=== PATIENT | male | born 1940 | race Caucasian/White ===

== ENCOUNTER 2018-12-31 08:40 | Observation (INO) ==
--- NOTE | 2018-12-31 09:05 | Emergency Department Note ---
START Narrative - START START: Received a call from Dr. Zuñiga get her regarding a patient he is sending him from his office. Patient has history of stage III chronic kidney disease, being sent over due to severe dyspnea on exertion, progressive edema, jugular venous distention, and 6 pound weight gain. I am told that he is not very good with self-care. Had a creatinine of 1.6 in September, 1.7 in October, he is suspicious that his kidney dysfunction may have progressed. Dr. Zuñiga requested admission to the hospitalist team with consultation to him.
[2018-12-31] MEDS ORDERED: Furosemide 40 MG/4 ML VIAL IVP STA (09:30)
--- NOTE | 2018-12-31 09:31 | Emergency Department Note ---
Disposition Clinical Impression: Congestive heart failure Disposition: Admitted As Inpatient Condition: Good [facility]errals: [facility] [[facility] Physician[facility] - Forms: ED Satisfaction Letter Time of Disposition: 11:11 General Adult HPI - General Chief complaint: ED Shortness of Breath/Dyspnea Stated complaint: SOB Time Seen by Provider: 12/31/18 09:02 Source: patient Limitations: no limitations Nursing Notes Reviewed: Yes Vital Signs Reviewed: Yes - History of Present Illness HPI Narrative: Male patient presenting to emergency department after being sent by Dr. Salinas get her for increased dyspnea on exertion. Patient does have a history of lung cancer that he had radiation and resection for as well as chronic kidney disease. Patient is very reserved on what he tells me why he is here. Dr. Frey did give a phone call to the ER prior to his arrival here was requesting admission for increased edema and dyspnea on exertion. I feel that this is a reasonable expectation and discussed this with the patient. He expressed understanding. He denied any fevers. He tells me that he does have shortness of breath and has had shortness of breath for several years. He reports that he does not believe it is out of the ordinary for him. He does not use oxygen at home. He does however state that he is short of breath whenever he walks around. Denies any fevers. Does report a cough that is normal for him with no increased production. Patient states that he does take a antidiuretic but unknown what this is or the dose. [facility] so we are limited on the past medical history and we are attempting to get that at this time. States he has been taking his medications per prescription. Pain Scale: 7 - Related Data Allergies Allergy/AdvReac Type Severity Reaction Status Date / Time Penicillins Allergy Hives Verified 12/31/18 08:50 All systems ED: reviewed and negative except as stated. Review of Systems: As Per HPI Constitutional: Denies: fever Cardiovascular: Denies: chest pain Respiratory: Reports: cough, dyspnea (At baseline. No increased.) Gastrointestinal: Denies: abdominal pain, nausea, vomiting, diarrhea Musculoskeletal: Denies: back pain, neck pain Past Medical History - Past Medical History Attestation: Yes The following information was validated with the patient. Source: patient Medical history: Reports: cancer, COPD, coronary artery disease, hyperlipidemia, hypertension, other Surgical history: Reports: other Psychiatric history: Reports: no psych history - Social History Smoking Status: Former smoker Smokeless Tobacco Status: Yes (every day) Alcohol use: Reports: occasionally Drug use: Reports: none Physical Exam - General Limitations: no limitations General appearance: alert, in no apparent distress - Head Head exam: atraumatic - Eye Eye exam: Present: normal appearance, PERRL, EOMI - ENT ENT exam: normal exam, normal oropharynx, mucous membranes moist - Neck Neck exam: Present: normal inspection, full ROM, trachea midline - Chest Chest inspection: Present: normal inspection, symmetric chest wall rise - Respiratory Respiratory exam: Present: normal lung sounds bilaterally. Absent: respiratory distress, accessory muscle use - Cardiovascular Cardiovascular exam: Present: regular rate, normal rhythm, normal heart sounds - Abdominal Exam Abdominal exam: Present: soft, Non-Tender. Absent: tenderness, distention, guarding, rebound, rigidity, organomegaly, Hernandez's sign, Rovsing's sign, tenderness at McBurney's Point - Extremities Exam Extremities exam: Present: normal inspection, full ROM, pedal edema (Pitting circumferentially to the knees and then in the dependent areas from the knees to the hips.). Absent: tenderness - Back Exam Back exam: Present: normal inspection, full ROM. Absent: tenderness - Neurological Exam Neurological exam: Present: alert, oriented X3 - Psychiatric Psychiatric exam: Present: normal affect, normal mood. Absent: depressed, agitated, anxious Course Course Narrative: Patient with a history of CHF with a baseline ejection fraction at 25% [facility]. Sent from Dr. Velez's office a literature professor or concerns for increased dyspnea on exertion and edema. We did get basic lab workup on the patient and provided him with 40 mg of IV Lasix. Patient is a very poor historian. Quickly time he looked up in my computer. However the patient is a [facility] patient. We did attempt to get the records from them. Patient's lab workup is remarkable for creatinine that is elevated however this appears to be baseline from the [facility] paperwork. Chest x-ray did have a small left-sided pleural effusion. Again he is not more short of breath out of the ordinary for him. He does wear oxygen. Has a pacemaker and EKG does show a paced rhythm with occasional PVCs. We will begin patient to the hospital for further diuresis and evaluation. Again he denies any chest pain and is not tachypneic. Vital Signs Temperature 97.4 F L 12/31/18 08:57 Pulse Rate 62 12/31/18 08:57 Respiratory Rate 15 12/31/18 08:57 Blood Pressure 144/69 12/31/18 08:57 O2 Sat by Pulse Oximetry 97 12/31/18 08:57 Temperature 97.4 F L 12/31/18 08:57 Pulse Rate 82 12/31/18 09:58 Respiratory Rate 17 12/31/18 09:58 Blood Pressure 152/72 12/31/18 09:58 O2 Sat by Pulse Oximetry 99 12/31/18 09:58 Oxygen Delivery Oxygen Delivery Room Air Medical Decision Making - Medical Records Medical records reviewed: Yes I reviewed the patient's medical records. - Lab Data Lab results reviewed: Yes I reviewed the patient's lab results. Result diagrams: 12/31/18 09:45 12/31/18 09:45 Lab Results 12/31/18 12/31/18 12/31/18 Range/Units 09:45 09:45 09:45 WBC 3.9 L (4.3-11.1) K/mcL RBC 4.04 L (4.19-5.50) M/mcL Hgb 11.7 L (12.9-16.9) g/dL Hct 38.1 (37.5-50.1) % MCV 94.3 (83.0-100.0) fL MCH 29.0 (28.0-33.3) pg MCHC 30.7 L (31.6-35.5) g/dL RDW 20.3 H (11.5-14.5) % Plt Count 106 L (140-400) K/mcL MPV 10.1 (9.4-12.4) fL Sodium 141 (136-145) mEq/L Potassium 3.3 L (3.5-5.1) mEq/L Chloride 96 L (98-107) mEq/L Carbon Dioxide 35 H (23-29) mEq/L BUN 26 H (8-23) mg/dL Creatinine 1.66 H (0.70-1.30) mg/dL Est GFR ( Amer) 49 L (> 60) Est GFR (Non-Af Amer) 40 L (> 60) BUN/Creatinine Ratio 16 (6-26) Glucose 100 (70-105) mg/dL Calculated Osmolality 297 (280-300) Calcium 9.7 (8.6-10.3) mg/dL Magnesium 2.3 (1.6-2.6) mg/dL Urine Color Yellow (Yellow) Urine Clarity Clear (Clear) Urine pH 6.5 (5.0-8.0) pH Units Ur Specific [place] 1.015 (1.010-1.025) Urine Protein Trace (Neg-Trace) mg/dL Urine Glucose (UA) Normal (Normal) mg/dL Urine Ketones Negative (Negative) mg/dL Urine Blood Negative (Negative) Urine Nitrite Negative (Negative) Urine Bilirubin Negative (Negative) Urine Urobilinogen 2.0 H (Normal) mg/dL Ur Leukocyte Esterase Negative (Negative) - Radiology Data Radiology results reviewed: Yes I reviewed the patient's radiology results. Chest X-Ray 12/31/18 09:26 IMPRESSION: Left-sided pleural effusion D/ / Johnathon Glass MD / Johnathon Glass MD Interpreting Provider: Johnathon Glass MD - EKG Data EKG #1 EKG attestation: Yes I reviewed and interpreted this EKG. EKG results narrative: Paced rhythm at a rate 84. QRS duration is 26. QT is 544. QTC is 585. Patient does have frequent PVCs as well. These could be his ely [place] beats however. No previous EKG to compare to.
[2018-12-31 09:57] LABS: Bilirubin,Urine Negative (Negative); Blood,Urine Negative (Negative); Clarity,Urine Clear (Clear); Color,Urine Yellow (Yellow); Glucose,Urine (UA) Normal (Normal); Ketones,Urine Negative (Negative); Leukocyte Esterase,Urine Negative (Negative); Nitrite,Urine Negative (Negative); PH,Urine 6.5 pH Units (5.0-8.0); Protein,Urine Trace mg/dL (Neg-Trace); Specific Gravity,Urine 1.015 (1.010-1.025)
[2018-12-31 10:03] LABS: Hematocrit 38.1 % (37.5-50.1); Hemoglobin 11.7 g/dL (12.9-16.9); Mean Corpuscular HGB Conc 30.7 g/dL (31.6-35.5); Mean Corpuscular Volume 94.3 fL (83.0-100.0); Mean Platelet Volume 10.1 fL (9.4-12.4); Platelet Count 106 K/mcL (140-400); Red Blood Count 4.04 M/mcL (4.19-5.50); Red Cell Distribution Width 20.3 % (11.5-14.5); White Blood Count 3.9 K/mcL (4.3-11.1)
[2018-12-31 10:17] LABS: Calcium 9.7 mg/dL (8.6-10.3); Magnesium 2.3 mg/dL (1.6-2.6); Potassium 3.3 mEq/L (3.5-5.1)
--- NOTE | 2018-12-31 10:31 | Emergency Department Note ---
Disposition Clinical Impression: Congestive heart failure Disposition: Admitted As Inpatient Condition: Good [facility]errals: [facility] [Primary Care Provider[facility] - Forms: ED Satisfaction Letter Time of Disposition: 11:11 General Adult HPI - General Chief complaint: ED Shortness of Breath/Dyspnea Stated complaint: SOB Time Seen by Provider: 12/31/18 09:02 Source: patient Limitations: no limitations Nursing Notes Reviewed: Yes Vital Signs Reviewed: Yes - History of Present Illness Pain Scale: 7 - Related Data Allergies Allergy/AdvReac Type Severity Reaction Status Date / Time Penicillins Allergy Hives Verified 12/31/18 08:50 Past Medical History - Past Medical History Medical history: Reports: cancer, COPD, coronary artery disease, hyperlipidemia, hypertension, other Surgical history: Reports: other Psychiatric history: Reports: no psych history - Social History Smoking Status: Former smoker Smokeless Tobacco Status: Yes (every day) Alcohol use: Reports: occasionally Drug use: Reports: none Physical Exam - General Limitations: no limitations General appearance: alert, in no apparent distress Course Vital Signs Temperature 97.4 F L 12/31/18 08:57 Pulse Rate 62 12/31/18 08:57 Respiratory Rate 15 12/31/18 08:57 Blood Pressure 144/69 12/31/18 08:57 O2 Sat by Pulse Oximetry 97 12/31/18 08:57 Temperature 97.4 F L 12/31/18 08:57 Pulse Rate 82 12/31/18 09:58 Respiratory Rate 17 12/31/18 09:58 Blood Pressure 152/72 12/31/18 09:58 O2 Sat by Pulse Oximetry 99 12/31/18 09:58 Oxygen Delivery Oxygen Delivery Room Air Medical Decision Making - Medical Records Medical records reviewed: Yes I reviewed the patient's medical records. - Lab Data Lab results reviewed: Yes I reviewed the patient's lab results. Result diagrams: 12/31/18 09:45 12/31/18 09:45 Lab Results 12/31/18 12/31/18 12/31/18 Range/Units 09:45 09:45 09:45 WBC 3.9 L (4.3-11.1) K/mcL RBC 4.04 L (4.19-5.50) M/mcL Hgb 11.7 L (12.9-16.9) g/dL Hct 38.1 (37.5-50.1) % MCV 94.3 (83.0-100.0) fL MCH 29.0 (28.0-33.3) pg MCHC 30.7 L (31.6-35.5) g/dL RDW 20.3 H (11.5-14.5) % Plt Count 106 L (140-400) K/mcL MPV 10.1 (9.4-12.4) fL Sodium 141 (136-145) mEq/L Potassium 3.3 L (3.5-5.1) mEq/L Chloride 96 L (98-107) mEq/L Carbon Dioxide 35 H (23-29) mEq/L BUN 26 H (8-23) mg/dL Creatinine 1.66 H (0.70-1.30) mg/dL Est GFR ( Amer) 49 L (> 60) Est GFR (Non-Af Amer) 40 L (> 60) BUN/Creatinine Ratio 16 (6-26) Glucose 100 (70-105) mg/dL Calculated Osmolality 297 (280-300) Calcium 9.7 (8.6-10.3) mg/dL Magnesium 2.3 (1.6-2.6) mg/dL Urine Color Yellow (Yellow) Urine Clarity Clear (Clear) Urine pH 6.5 (5.0-8.0) pH Units Ur Specific [place] 1.015 (1.010-1.025) Urine Protein Trace (Neg-Trace) mg/dL Urine Glucose (UA) Normal (Normal) mg/dL Urine Ketones Negative (Negative) mg/dL Urine Blood Negative (Negative) Urine Nitrite Negative (Negative) Urine Bilirubin Negative (Negative) Urine Urobilinogen 2.0 H (Normal) mg/dL Ur Leukocyte Esterase Negative (Negative) - Radiology Data Radiology results reviewed: Yes I reviewed the patient's radiology results. Chest X-Ray 12/31/18 09:26 IMPRESSION: Left-sided pleural effusion D/ / Johnathon Glass MD / Johnathon Glass MD Interpreting Provider: Johnathon Glass MD - EKG Data EKG #1 EKG attestation: Yes I reviewed and interpreted this EKG. EKG results narrative: EKG shows a uncertain rhythm with frequent PVCs in a bigeminy pattern. Ventricular rate 84. Critical Care Time Critical Care Time: No Attestation Statement - Attestation Attestation: I, Stan Poon MD, personally evaluated this patient and discussed their management with the resident physician. I reviewed the resident's note and agree with the documented findings, medical decision making, and plan of care. I reviewed the residents documentation and agree with the residents assessment and plan of care. I have personally had face to face time with the patient. I personally supervised and was present for the flores/critical portions of the following procedures completed by the resident: EKG interpretation. 78-year-old male with history of stage III chronic kidney disease presents to the emergency department after being referred by his wellness coordinator, Dr. Velez, for admission. Patient complains of increased shortness of breath with exertion. Weight gain and increased pedal edema. On examination patient is a well-developed well-nourished elderly male in no acute distress. He is alert and oriented 3. There is no cyanosis or diaphoresis. Breath sounds are decreased but equal bilaterally with a few bibasilar rales. Heart regular. Abdomen soft and nontender. 2+ pitting edema of the lower extremities bilaterally. EKG shows a uncertain rhythm with frequent PVCs in a bigeminy pattern. Ventricular rate 84. Labs reviewed. Chest x-ray showed a pleural effusion. The wellness coordinator software applications designer, Dr. Maya, was consulted and recommended admission with consultation by nephrology. The hospitalist, Dr. Stewart, was consulted and accepted admission of the patient.
--- NOTE | 2018-12-31 12:03 | Internal Med History&Physical ---
Date of Encounter: 12/31/18 Time of Encounter: 12:00 Internal Medicine - H&P: HPI Chief complaint: shortness of breath, send by nephrology Admitted From: Home Plans for Post Hospital Care: Home History of present illness: Mr. Iovry is a 78 year old male with past medical history of lung cancer, COPD, coronary artery disease, ischemic cardiomyopathy with EF of 25% status post AICD, hypertension, chronic thrombocytopenia, systolic CHF, chronic kidney disease stage III, who was recently discharged from [place] after admission for likely CHF exacerbation was seen by probation agent who I asked him to come to ER. Patient has been having shortness of breath gradually progressively worse over the past week or so. He denies any chest pain abdominal pain nausea vomiting or diarrhea. He says is compliant with his medication. Denies any cough fever or chills or sputum production. Denies any difficulty passing urine. Patient has not been following cardiology or pulmonology. He reports that he has lung nodules which apparently there were waiting for it to get big enough so that they can figure out if his lung cancer is back. He received radiation therapy for lung cancer in 2014 however did not receive any chemotherapy or had any surgeries. Patient was seen in the ER and was found to have mild pancytopenia and stable renal function but had significant signs of volume overload. Admission was requested for further diuresis. Patient mentioned he takes part of fluid to prevent dehydration as she was told to do so. Past Med Surg Social Fam HX - Past Medical History Medical history: cancer, COPD, coronary artery disease, hyperlipidemia, hyper tension, other Additional medical history: CKD Psychiatric history: no psych history - Past Surgical History Surgical History: other Additional surgical history: tumor resection - Social History Smoking Status: Former smoker Smokeless Tobacco Status: Yes (every day) Alcohol use: occasionally Drug use: none Internal Medicine - H&P: Meds Allergy/AdvReac Type Severity Reaction Status Date / Time Penicillins Allergy Hives Verified 12/31/18 08:50 All Systems PM: A 10-system review of systems was performed and is negative for pertinent findings except as documented above in the HPI. - Constitutional Vitals: Temp Pulse Resp BP Pulse Ox 97.4 F L 82 17 144/72 99 12/31/18 08:57 12/31/18 09:58 12/31/18 11:57 12/31/18 11:57 12/31/18 09:58 Exam: Constitutional: Vitals as noted. Conversant. No Apparent Distress. frail looking Eyes : conjunctiva clear, no lid lag, PEARLA. ENT : Grossly normal hearing. Moist mucus membranes. JVD present. Respiratory : no accessory muscle use. Diffuse crackles over all lung field Cardiovascular : RRR, +S1, +S2. no MRG. No chest wall tenderness GI/Abdominal : Soft, Non-tender, distended, normal bowel sounds, no peritoneal signs. Fluid thrill present. abdominal wall edema present. Musculoskeletal: no deformity noted. 2+ edema till thigh. no calf tenderness. Neurological: AO X3, CN II-XII grossly intact, grossly normal motor and sensory exam. Skin: no worrisome skin rash Internal Med - H&P Results - Labs CBC & Chem 7: 12/31/18 09:45 12/31/18 09:45 Labs: Short CBC 12/31/18 Range/Units 09:45 WBC 3.9 L (4.3-11.1) K/mcL Hgb 11.7 L (12.9-16.9) g/dL Hct 38.1 (37.5-50.1) % Plt Count 106 L (140-400) K/mcL BMP 12/31/18 09:45 Sodium 141 Potassium 3.3 L Chloride 96 L Carbon Dioxide 35 H BUN 26 H Creatinine 1.66 H Glucose 100 Calcium 9.7 Urine 12/31/18 Range/Units 09:45 Urine Color Yellow (Yellow) Urine Clarity Clear (Clear) Urine pH 6.5 (5.0-8.0) pH Units Ur Specific [place] 1.015 (1.010-1.025) Urine Protein Trace (Neg-Trace) mg/dL Urine Glucose (UA) Normal (Normal) mg/dL - Impressions ITS Impressions Chest X-Ray 12/31/18 09:26 IMPRESSION: Left-sided pleural effusion D/ / Johnathon Glass MD / Johnathon Glass MD Interpreting Provider: Johnathon Glass MD - Assessment and Plan (1) Congestive heart failure Current Visit: Yes Status: Acute Assessment and plan: Patient with signs of volume overload likely secondary to CHF exacerbation with systolic ejection fraction of 25% per papers reviewed from [place] with recent discharge in November. Likely 3rd admission in past 4 months Possibly related to his worsening cardiac disease and possible increase fluid intake as he is not restricting himself. Showed frequent PVCs and AICD with occasional pacing. Patient without chest pain. we will continue patient on IV diuresis with Lasix 40 along with albumin given his CKD, strict in and out monitoring, daily weights Patient on Bumex at home. We will resume depending on his urine output with Lasix today. Continue patient's home spironolactone. Patient also with significant ascites and shortness of breath also possibly related to that. We will get IR guided paracentesis. We will get diagnostic and therapeutic given history of lung cancer and sent for cytology. Replete potassium and monitor BMP later today Qualifiers: Heart failure type: systolic Heart failure chronicity: acute on chronic Qualified Code(s): I50.23 - Acute on chronic systolic (congestive) heart failure (2) COPD (chronic obstructive pulmonary disease) Current Visit: Yes Status: Acute Assessment and plan: Not a COPD exacerbation Continue home Symbicort and when necessary bronchodilators Qualifiers: COPD type: unspecified COPD Qualified Code(s): J44.9 - Chronic obstructive pulmonary disease, unspecified (3) Ischemic cardiomyopathy Current Visit: Yes Status: Acute Assessment and plan: Patient with reported EF of 25% with ischemic cardiomyopathy He does not want any resuscitative measures. We will consult palliative for further goals of care discussion and possible hospice discussion (4) HTN (hypertension) Current Visit: Yes Status: Acute Assessment and plan: Resume home medication including spironolactone, hold home losartan, Does not appear to be on beta raul. Will likely discharge on beta raul once good diuresis achieved. Qualifiers: Hypertension type: essential hypertension Qualified Code(s): I10 - Essential (primary) hypertension (5) Pancytopenia Current Visit: Yes Status: Acute Assessment and plan: Possibly related to volume overload. However has chronic thrombocytopenia Obtain vitamin B12 and folate levels and iron panel (6) Ascites Current Visit: Yes Status: Acute Assessment and plan: Likely exudative. We will obtain diagnostic and therapeuti IR guided paracentesis Obtain viral hepatitis panel Qualifiers: Ascites type: other type Qualified Code(s): R18.8 - Other ascites (7) Goals of care, counseling/discussion Current Visit: Yes Status: Acute Assessment and plan: Patient does not want any resuscitative measures. Agrees to speak with palliative team for possible hospice evaluation. - Time Spent With Patient Total time spent is greater than 50% in coordination of care (as documented) at patient's floor/unit and/or counseling patient:
[2018-12-31] MEDS ORDERED: Albumin 25% 25gram/100mL 25 GM/100 ML IV.SOLN IVPB ONE (12:33)
[2018-12-31] MEDS ORDERED: Ipratropium/Albuterol Neb 3 ML IH PRN (12:42)
--- NOTE | 2018-12-31 15:02 | Procedure Note ---
Date of procedure: 12/31/18 Pre-op diagnosis: ascitis Post-op diagnosis: same Procedure: INDICATION: Ascitis PROCEDURE MECHANICAL INTEGRITY ENGINEER: Hudson Perez ATTENDING PHYSICIAN: Pete Beckwith In Attendance Y Ultrasound used to virgen location: Y 4843mL total fluid removed CONSENT: Consent was obtained from patient prior to the procedure. Indications, risks, and benefits were explained at length. PROCEDURE SUMMARY: A time-out was performed. My hands were washed immediately prior to the pr ocedure. I wore a surgical cap, mask with protective eyewear, and sterile gloves throughout the procedure. The area was cleansed and draped in usual sterile fashion using chlorhexidine scrub. Anesthesia was achieved with 1% lidocaine. The left side of the abdomen was prepped and draped in a sterile fashion. 1% lidocaine was used to numb the skin, soft tissue and peritoneum. The paracentesis catheter was inserted and advanced with negative pressure until yellow/orange colored fluid was aspirated. Approximately 60 mL of ascitic fluid was collected and sent for laboratory analysis. The catheter was then connected to the vaccutainer and 4783 mL of additional ascitic fluid were drained. The catheter was removed and no leaking was noted. Dermabond was placed over the puncture wound. The patient tolerated the procedure well without any immediate complications. Estimated blood loss was 1mL. Anesthesia: local Surgeon: Hudson Perez Was there an purchasing administrative assistant present: No Estimated blood loss (cc): 1 Specimen: 60ml Condition: stable Disposition: floor
--- NOTE | 2018-12-31 15:16 | Event Note ---
Date of Encounter: 12/31/18 Time of Encounter: 15:18 Palliative Care consulted today to assist with goals of care/possible transition to hospice. Pt is currently in IR for procedure. Palliative will follow up in the morning to assist in establishing prognostic awareness, goals and preferences in the setting of his current clinical condition.
[2018-12-31] MEDS: Furosemide 40 MG/4 ML VIAL IVP SCH ×2 (15:34→17:12)
--- NOTE | 2018-12-31 15:41 | Nephrology Consult Note ---
<ShaggynorisAmparoTati Kiran - Last Filed: 12/31/18 21:26> Date of Encounter: 12/31/18 Time of Encounter: 15:39 Assessment and Plan (1) CKD (chronic kidney disease) stage 3, GFR 30-59 ml/min Status: Acute Appears baseline is CKD III, stable. GFR 40 today. Continue current diuretic regimen. Daily BMP to trend GFR with IV diuretics. Avoid other nephrotoxins and renal dose all medications. Strict I/O Daily weights. (2) Ascites Status: Acute Approximately 4 liters removed with paracentesis by IR. Qualifiers: Ascites type: other type Qualified Code(s): R18.8 - Other ascites (3) Congestive heart failure Status: Acute 1.5 Liter fluid restriction. Per primary. Qualifiers: Heart failure type: systolic Heart failure chronicity: acute on chronic Qualified Code(s): I50.23 - Acute on chronic systolic (congestive) heart failure History of Present Illness - Reason for Consult Consult date: 12/31/18 Chronic Kidney Disease Requesting physician: Mildred Mckeon - Chief Complaint dyspnea - History of Present Illness Mr. Ivory is an 78 year old male who was seen by Dr. Velez in the office this am. PMH: COPD, coronary artery disease, hyperlipidemia, hypertension, and CKD III. He describe extreme dyspnea and edema to Dr. Velez this am, so he suggested he to to ED for IV diuretics. There was also concern because patient was not sure what "water pill" he was on, and since he is seen at the [place] they were not readily available to Dr. Velez. [facility] were consulted to manage diuretics. Pt has 40 IV lasix ordered BID. Will monitor kidney function and titrate accordingly. Denies chest pain, admits to feeling short of breath. Denies nausea, vomiting, diarrhea. He is a former smoker, now uses smokeless tobacco daily. Denies etoh or illicit drug use. Past Med Surg Social Fam HX - Past Medical History Medical history: cancer, COPD, coronary artery disease, hyperlipidemia, hypertension, other Additional medical history: CKD Psychiatric history: no psych history - Past Surgical History Surgical History: other Additional surgical history: tumor resection - Social History Smoking Status: Former smoker Smokeless Tobacco Status: Yes (every day) Alcohol use: occasionally Drug use: none Medications and Allergies Allopurinol [Zyloprim 100 MG] 50 mg PO DAILY 12/31/18 [History] Budesonide/Formoterol 160/4.5 [Symbicort 160/4.5] 2 puff IH BIDR 12/31/18 [History] Carvedilol [Coreg] 6.25 mg PO BIDWM 12/31/18 [History] Ipratropium/Albuterol Sulfate [Combivent Respimat 20-100 Mcg] 1 puff IH QID PRN 12/31/18 [History] Losartan [Cozaar] 12.5 mg PO QPM 12/31/18 [History] Aspirin 81 mg PO DAILY #0 01/01/19 [Rx] Atorvastatin Calcium [Lipitor] 80 mg PO HS #0 01/01/19 [Rx] Furosemide [Lasix] 40 mg PO BID 30 Days #60 tablet 01/01/19 [Rx] Spironolactone [Aldactone] 25 mg PO BID 30 Days #30 tab 01/01/19 [Rx] Allergy/AdvReac Type Severity Reaction Status Date / Time Penicillins Allergy Hives Verified 12/31/18 08:50 Review of Systems All Systems review (narrative): The remainder of the systems are negative. Constitutional: fatigue, no chills, no fever(s) Cardiovascular: dyspnea, dyspnea on exertion, edema, no chest pain Respiratory: cough, dyspnea, no hemoptysis, no wheezing Gastrointestinal: no change in bowel habits, no diarrhea, no nausea, no vomiting Genitourinary Male: no hematuria Exam - Vital Signs Vital signs: Initial Vital Signs Temp Pulse Resp BP Pulse Ox 97.4 F L 62 15 144/69 97 12/31/18 08:57 12/31/18 08:57 12/31/18 08:57 12/31/18 08:57 12/31/18 08:57 Vital Signs - Last 8 Hours Temp Pulse Resp BP Pulse Ox 12/31/18 15:32 97.6 F 69 16 120/64 96 12/31/18 12:54 97.7 F 76 16 134/92 94 12/31/18 11:57 17 144/72 12/31/18 09:58 82 17 152/72 99 12/31/18 08:57 97.4 F L 62 15 144/69 97 Intake and Output 12/30/18 12/31/18 12/31/18 23:59 07:59 15:59 Intake Total 480 / 480 Output Total 125 / 125 Balance 355 / 355 Intake: Oral 480 / 480 Output: Urine 125 / 125 Other: Meal Lunch Percent of Meal Consumed 100% Weight 87.997 kg Patient Weight 12/31/18 23:59 Weight 87.997 kg - General Appearance General appearance: chronically ill EENT: ATNC, hearing intact, vision intact Neck: JVD, supple Respiratory: clear Cardiology: edema (+2 pitting edema noted to bilat lower extremities.), normal S1, normal S2 Gastrointestinal: normoactive bowel sounds, no tenderness, no guarding, distende d Integumentary: no rash, warm and dry Neurologic: alert and oriented x3 Musculoskeletal: no deformities, no erythema Psychiatric: mood/affect appropriate, cooperative Results - Lab Results 12/31/18 09:45 12/31/18 18:20 Most recent lab results 12/31/18 09:45 Calcium 9.7 Magnesium 2.3 Consult Discharge Plan - Plan Instructions: Spironolactone (By mouth), Furosemide (By mouth), Heart Failure (DC) Referrals: [facility] [Other] (appointment requested online within 4-6 weeks; office will follow up with patient to schedule appointment) [facility] - (tried twice to reach the office to schedule appointment but phone continually rang with no answer. Please call and make appointment in 5-7 days) Prescriptions: Spironolactone [Aldactone] 25 mg PO BID 30 Days #30 tab Prescription Printed Furosemide [Lasix] 40 mg PO BID 30 Days #60 tablet Prescription Printed <Grant Gamez - Last Filed: 01/10/19 22:25> Date of Encounter: 12/31/18 Assessment and Plan (1) CKD (chronic kidney disease) stage 3, GFR 30-59 ml/min Status: Acute (2) Ascites Status: Acute Qualifiers: Ascites type: other type Qualified Code(s): R18.8 - Other ascites (3) Congestive heart failure Status: Acute Qualifiers: Heart failure type: systolic Heart failure chronicity: acute on chronic Qualified Code(s): I50.23 - Acute on chronic systolic (congestive) heart failure Exam - Vital Signs Vital signs: Initial Vital Signs Temp Pulse Resp BP Pulse Ox 97.4 F L 62 15 144/69 97 12/31/18 08:57 12/31/18 08:57 12/31/18 08:57 12/31/18 08:57 12/31/18 08:57 Results - Lab Results 01/01/19 00:43 01/01/19 00:43 - Attending Attestation I examined this patient and my medical decision-making was reviewed with the Resident Physician/AQUATIC FACILITY MANAGER. I agree with the documented findings, disposition and treatment plan as described except to the extent set forth below. In brief; 78 y o male with PMH of COPD, CAD, HTN and stage [address] Velez admitted with SOB and LE edema. s/p paracentesis with 4 liters removed. Renal consulted for diuretic management, currently on lasix iv 40mg bid. On exam; chronic ill appearing with lungs clear, Heart S1S2, Ext with +1 LE edema bilat and Neuro AAOx3. SCr noted stable at baseline. Continue current diuretic regimen. Fluid restriction advised.
[2018-12-31 16:07] LABS: INR 1.5; Prothrombin Time 17.4 Seconds (9.4-12.1)
[2018-12-31 19:03] LABS: Potassium 3.3 mEq/L (3.5-5.1)
[2018-12-31 22:09] LABS: Troponin I 0.04 ng/mL (< 0.04)
[2018-12-31 22:39] LABS: RBC,Peritoneal Fluid 0.002 M/mcL
[2018-12-31 22:45] LABS: Total Protein,Peritoneal Fluid 3.1 g/dL
[2018-12-31 22:52] LABS: Appearance of Peritoneal Fl HAZY (Clear)
[2018-12-31 23:11] LABS: Basophils,Peritoneal Fluid 0 %; Eosinophils,Peritoneal Fluid 0 %
[2019-01-01 01:30] LABS: Basophils % 0.7 %; Eosinophils # 0.1 K/mcL (0.0-0.6); Eosinophils % 2.9 %; Hematocrit 33.8 % (37.5-50.1); Hemoglobin 10.3 g/dL (12.9-16.9); Lymphocytes # 0.5 K/mcL (0.6-4.6); Lymphocytes % 10.3 %; Mean Corpuscular HGB Conc 30.5 g/dL (31.6-35.5); Mean Corpuscular Hemoglobin 29.3 pg (28.0-33.3); Mean Platelet Volume 11.5 fL (9.4-12.4); Monocytes # 0.4 K/mcL (0.0-1.3); Monocytes % 9.2 %; Neutrophils # 3.4 K/mcL (1.6-8.9); Platelet Count 103 K/mcL (140-400); Red Blood Count 3.52 M/mcL (4.19-5.50); Red Cell Distribution Width 20.2 % (11.5-14.5); Segmented Neutrophils % 76.9 %; White Blood Count 4.5 K/mcL (4.3-11.1)
[2019-01-01 01:36] LABS: INR 1.6; Prothrombin Time 17.8 Seconds (9.4-12.1)
[2019-01-01 01:54] LABS: Magnesium 2.1 mg/dL (1.6-2.6); Phosphorous 3.1 mg/dL (2.7-4.5); Potassium 3.5 mEq/L (3.5-5.1)
[2019-01-01 01:55] LABS: % Iron Saturation 12 % (20-55); Iron 39 mcg/dL (65-175); Transferrin 227 mg/dL (203-362)
[2019-01-01 02:08] LABS: Ferritin 57 ng/mL (20-250)
[2019-01-01 02:14] LABS: Folate 8.8 ng/mL (3.0-16.0)
[2019-01-01 03:39] LABS: Hepatitis B Surface Antigen Nonreactive (Nonreactive)
[2019-01-01 04:09] LABS: Hepatitis B Core IgM Nonreactive (Nonreactive)
[2019-01-01 04:10] LABS: Hepatitis C Virus Antibody Nonreactive (Nonreactive)
[2019-01-01 04:11] LABS: Hepatitis A Antibody IgM Nonreactive (Nonreactive)
--- NOTE | 2019-01-01 06:01 | Electrocardiograph Report ---
[facility] Test Date: 2018-12-31 Pat Name: Nicolás Ivory Department: 104 Room: 2NE22 Gender: M Director Of Personnel: Sarah : 1940 Requested By: Tyrone Ureña Order Number: [id number] Reading MD: Zachariah Oreilly Measurements Intervals [place] Rate: 84 P: ME: 0 QRS: 106 QRSD: 226 T: 268 QT: 544 QTc: 585 Interpretive Statements PACED RHYTHM Electronically Signed On 01-01-2019 6:00:11 EDT by Zachariah Oreilly
[2019-01-01] MEDS ORDERED: Spironolactone 25 MG TABLET PO SCH (09:00)
[2019-01-01] MEDS ORDERED: Aspirin Enteric Coated 81 MG Tablet PO SCH (09:00)
[2019-01-01] MEDS: Furosemide 40 MG/4 ML VIAL IVP SCH (09:01)
--- NOTE | 2019-01-01 09:05 | Internal Med Progress Note ---
Hospitalist Progress Note - Encounter Date of Encounter: 01/01/19 - Exam Vitals: Temp Pulse Resp BP Pulse Ox 98 F 73 16 136/69 93 01/01/19 07:46 01/01/19 07:46 01/01/19 07:46 01/01/19 07:46 01/01/19 07:46 - Assessment and Plan (1) Congestive heart failure Current Visit: Yes Status: Acute (2) COPD (chronic obstructive pulmonary disease) Current Visit: Yes Status: Acute (3) Ischemic cardiomyopathy Current Visit: Yes Status: Acute (4) HTN (hypertension) Current Visit: Yes Status: Acute (5) Pancytopenia Current Visit: Yes Status: Acute (6) Ascites Current Visit: Yes Status: Acute (7) Goals of care, counseling/discussion Current Visit: Yes Status: Acute - Time Spent with Patient Total time spent is greater than 50% in coordination of care (as documented) at patient's floor/unit and/or counseling patient: Internal Medicine: Result - Labs CBC & Chem 7: 01/01/19 00:43 01/01/19 00:43 Labs: Short CBC 12/31/18 01/01/19 Range/Units 09:45 00:43 WBC 3.9 L 4.5 (4.3-11.1) K/mcL Hgb 11.7 L 10.3 L (12.9-16.9) g/dL Hct 38.1 33.8 L (37.5-50.1) % Plt Count 106 L 103 L (140-400) K/mcL Neutrophils # 3.4 (1.6-8.9) K/mcL BMP 12/31/18 12/31/18 01/01/19 09:45 18:20 00:43 Sodium 141 140 140 Potassium 3.3 L 3.3 L 3.5 Chloride 96 L 98 99 Carbon Dioxide 35 H 34 H 29 BUN 26 H 28 H 27 H Creatinine 1.66 H 1.72 H 1.73 H Glucose 100 113 H 112 H Calcium 9.7 9.0 9.0 Cardiac Enzymes 12/31/18 01/01/19 01/01/19 Range/Units 18:20 00:43 06:20 Troponin I 0.04 H* 0.05 H* 0.05 H* (< 0.04) ng/mL Liver Function 12/31/18 Range/Units 13:28 Albumin 3.9 (3.5-5.7) g/dL Urine 12/31/18 Range/Units 09:45 Urine Color Yellow (Yellow) Urine Clarity Clear (Clear) Urine pH 6.5 (5.0-8.0) pH Units Ur Specific [place] 1.015 (1.010-1.025) Urine Protein Trace (Neg-Trace) mg/dL Urine Glucose (UA) Normal (Normal) mg/dL - ABG Interpretation ABG results: PT/INR, D-dimer PT 17.8 Seconds (9.4-12.1) H 01/01/19 00:43 - Impressions Impressions Chest X-Ray 12/31/18 09:26 IMPRESSION: Left-sided pleural effusion D/ / Johnathon Glass MD / Johnathon Glass MD Interpreting Provider: Johnathon Glass MD Paracentesis Ultrasound 12/31/18 15:48 IMPRESSION: Successful ultrasound guided paracentesis. D/ / Pete Beckwith MD / Pete Beckwith MD Interpreting Provider: Pete Beckwith MD Consult Discharge Plan - Plan [facility] Provider[facility] - (1) Congestive heart failure Qualifiers: Heart failure type: systolic Heart failure chronicity: acute on chronic Qualified Code(s): I50.23 - Acute on chronic systolic (congestive) heart failure (2) COPD (chronic obstructive pulmonary disease) Qualifiers: COPD type: unspecified COPD Qualified Code(s): J44.9 - Chronic obstructive pulmonary disease, unspecified (4) HTN (hypertension) Qualifiers: Hypertension type: essential hypertension Qualified Code(s): I10 - Essential (primary) hypertension (6) Ascites Qualifiers: Ascites type: other type Qualified Code(s): R18.8 - Other ascites
--- NOTE | 2019-01-01 15:10 | Palliative - Consult Note ---
Date of Encounter: 01/01/19 Time of Encounter: 15:09 - Assessment and Plan (1) Palliative care by specialist Current Visit: Yes Status: Acute Assessment and plan: Pt currently has capacity to make complex medical decisions. (2) Goals of care, counseling/discussion Current Visit: Yes Status: Acute Assessment and plan: - We discussed his clinical condition, prognosis, and treatment options in the context of his values, preferences and goals. Although pt is poor historian when discussing his medications, he does demonstrate a clear understanding of his current clinical condition. - Discussed goals -- disease focused vs comfort focused care. Pt voices that he is not interested in hospice care at this time. - With permission, Palliative Care offered information pertaining to hospice / symptom management. Pt voiced understanding of hospice care and the services they provide. He expressed, " I don't think I am there yet." At this time, he continues to be okay with returning to the hospital if his condition worsens. Palliative Care discussed with patient that we are available to further discuss goals of care in the future if he desires. - Reviewed symptom management--pt reports his shortness of breath is much improved after being drained. He denies pain, constipation or any additional symptoms at this time. He reports that he lives alone and he remains highly functional at home. He does not require any assistance ambulating and still drives on his own and does all of his housework. He denies any further needs at this time. - Symptoms are stable currently and goals are clear. We will sign off for now. Please reconsult if further palliative issues arise. (3) Congestive heart failure Current Visit: Yes Status: Acute Assessment and plan: EF 25%, AICD. Continued diuresis per primary team. Qualifiers: Heart failure type: systolic Heart failure chronicity: acute on chronic Qualified Code(s): I50.23 - Acute on chronic systolic (congestive) heart failure (4) CKD (chronic kidney disease) stage 3, GFR 30-59 ml/min Current Visit: Yes Status: Acute Assessment and plan: Neph following. Per Nephrology notes- Appears baseline is CKD III, stable. (5) Ascites Current Visit: Yes Status: Acute Assessment and plan: Paracentesis by IR yesterday, 4 Liters removed. Qualifiers: Ascites type: other type Qualified Code(s): R18.8 - Other ascites Palliative-CN HPI - Data of Consult Requesting Physician: Jane Stewart MD Primary Care Provider: PCP [place] - Consult Narrative Palliative Care/Comfort Measures: Palliative care Reason for consult: Goals of Care History of present illness: Mr. Ivory is a 78 year old male with hx of lung cancer, COPD, CKD III, CAD and cardiomyopathy EF 25% s/p AICD. [facility] He was at his f/u appt with his funeral limousine driver and it was decided to send him to ED as he had been having progressively worsening shortness of breath leading up to his appointment. He was admitted for further diuresis. Palliative Care was consulted to explore goals of care with patient. Pt currently DNRCC-Arrest/DNI. - We discussed his clinical condition, prognosis, and treatment options in the context of his values, preferences and goals. Although pt is poor historian when discussing his medications, he does demonstrate a clear understanding of his current clinical condition. - Discussed goals -- disease focused vs comfort focused care. Pt voices that he is not interested in hospice care at this time. - With permission, Palliative Care offered information pertaining to hospice / s ymptom management. Pt voiced understanding of hospice care and the services they provide. He expressed, " I don't think I am there yet." At this time, he continues to be okay with returning to the hospital if his condition worsens. Palliative Care discussed with patient that we are available to further discuss goals of care in the future if he desires. - Reviewed symptom management--pt reports his shortness of breath is much improved after being drained. He denies pain, constipation or any additional symptoms at this time. He reports that he lives alone and he remains highly functional at home. He does not require any assistance ambulating and still drives on his own and does all of his housework. He denies any further needs at this time. CC: Jane Stewart MD - Time Spent with Patient Time: Total time spent is greater than 50% in coordination of care (as documented) at patient's floor/unit and/or counseling patient: 80 minutes Past Med Surg Social Fam HX - Past Medical History Medical history: cancer, COPD, coronary artery disease, hyperlipidemia, hype rtension, other Additional medical history: CKD Psychiatric history: no psych history - Past Surgical History Surgical History: other Additional surgical history: tumor resection - Social History Smoking Status: Former smoker Smokeless Tobacco Status: Yes (every day) Alcohol use: occasionally Drug use: none Medications and Allergies Allopurinol [Zyloprim 100 MG] 50 mg PO DAILY 12/31/18 [History] Aspirin 325 mg PO DAILY 12/31/18 [History] Atorvastatin Calcium [Lipitor] 40 mg PO HS 12/31/18 [History] Budesonide/Formoterol 160/4.5 [Symbicort 160/4.5] 2 puff IH BIDR 12/31/18 [History] Bumetanide [Bumex] 1 mg PO BID 12/31/18 [History] Carvedilol [Coreg] 6.25 mg PO BIDWM 12/31/18 [History] Ipratropium/Albuterol Sulfate [Combivent Respimat Inhal [place]] 1 puff IH QID PRN 12/31/18 [History] Losartan [Cozaar] 12.5 mg PO QPM 12/31/18 [History] Spironolactone [Aldactone] 12.5 mg PO BID 12/31/18 [History] Allergy/AdvReac Type Severity Reaction Status Date / Time Penicillins Allergy Hives Verified 12/31/18 08:50 - Constitutional Constitutional ROS PAL: as per HPI, fatigue - Cardiovascular Cardiovascular ROS: as per HPI, dyspnea on exertion, edema - Respiratory Respiratory: as per HPI, dyspnea on exertion - Gastrointestinal Gastrointestinal: no abdominal pain, no constipation - Genitourinary Genitourinary ROS male: no difficulty urinating - Musculoskeletal Musculoskeletal ROS IM: as per HPI - Neurological Neurological ROS: as per HPI, no frequent falls, no lack of coordination, no weakness - Psychiatric Psychiatric general PM: as per HPI, no anxiety Palliative Care-Exam - Constitutional Vitals: Temp Pulse Resp BP Pulse Ox 98 F 73 16 136/69 93 01/01/19 07:46 01/01/19 07:46 01/01/19 07:46 01/01/19 07:46 01/01/19 07:46 Exam: CONSTITUTIONAL/GENERAL: Awake, interactive, NAD, lying in bed. Ear/Nose/Mouth/Throat (EMNT): Patent, atraumatic. CARDIOVASCULAR: Pulse regular; pacemaker/AICD present. Generalized edema. RESPIRATORY: Unlabored. Symmetric, normal effort. Room air. GASTROINTESTINAL: Soft, non-distended. Active bowel sounds present. MUSCULOSKELETAL: No deformities; No joint swelling or erythema. INTEGUMENTARY: No rashes or lesions noted. NEUROLOGIC: No gross motor or sensory deficits appreciated. PSYCHIATRY: Alert, attentive. Behavior appropriate to situation. Internal Medicine - CN: Reslt - Labs CBC & Chem 7: 01/01/19 00:43 01/01/19 00:43 Labs: Short CBC 01/01/19 Range/Units 00:43 WBC 4.5 (4.3-11.1) K/mcL Hgb 10.3 L (12.9-16.9) g/dL Hct 33.8 L (37.5-50.1) % Plt Count 103 L (140-400) K/mcL Neutrophils # 3.4 (1.6-8.9) K/mcL BMP 12/31/18 01/01/19 18:20 00:43 Sodium 140 140 Potassium 3.3 L 3.5 Chloride 98 99 Carbon Dioxide 34 H 29 BUN 28 H 27 H Creatinine 1.72 H 1.73 H Glucose 113 H 112 H Calcium 9.0 9.0 Cardiac Enzymes 12/31/18 01/01/19 01/01/19 Range/Units 18:20 00:43 06:20 Troponin I 0.04 H* 0.05 H* 0.05 H* (< 0.04) ng/mL - ABG Interpretation ABG results: PT/INR, D-dimer PT 17.8 Seconds (9.4-12.1) H 01/01/19 00:43 - Impressions Impressions Paracentesis Ultrasound 12/31/18 15:48 IMPRESSION: Successful ultrasound guided paracentesis. D/ / Pete Beckwith MD / Pete Beckwith MD Interpreting Provider: Pete Beckwith MD Consult Discharge Plan - Plan [facility]errals: [facility] Provider[facility] - (tried twice to reach the office to schedule appointment but phone continually rang with no answer) Palliative Quality Palliative Quality: Screen for Code Status: Yes, Screen for Goals of Care: Yes, Screen for Pain: Yes, If Pain Regimen Started, Initiate Bowel Regimen: NA, Screen for Nausea/Vomitting: Yes Code Status: 12/31/18 12:31 Resuscitation Status: Active [RES] Routine Comment: Resuscitation Status: [id number] Palliative Scale - Palliative Performance Scale How ambulatory is this patient?: Full What is patient's level of activity and evidence of disease?: Normal activity with effort, Some evidence of disease Palliative Performance Score: 80 %
[2019-01-01 15:22] VITALS: BP 137/72
--- NOTE | 2019-01-01 15:35 | Nephrology Progress Note ---
Date of Encounter: 01/01/19 Time of Encounter: 12:00 - Assessment and Plan (1) CKD (chronic kidney disease) stage 3, GFR 30-59 ml/min Current Visit: Yes Status: Acute Appears baseline is CKD III, stable. GFR 38 today, stable. Continue current diuretic regimen. Daily BMP to trend GFR with IV diuretics. Avoid other nephrotoxins and renal dose all medications. Strict I/O Daily weights. Will sign off, please reconsult if needed. F/U with Dr. Velez in the office 4-6 weeks. (2) Ascites Current Visit: Yes Status: Acute Approximately 4 liters removed with paracentesis by IR on 12/31/18. Qualifiers: Qualified Code(s): R18.8 - Other ascites (3) Congestive heart failure Current Visit: Yes Status: Acute 1.5 Liter fluid restriction. Per primary. Qualifiers: Qualified Code(s): I50.23 - Acute on chronic systolic (congestive) heart failure Subjective Principal diagnosis: shortness of breath Interval history: Pt seen and examined with Dr. Maya at bedside. Denies chest pain, admits shortness of breath is improved. Denies nausea, vomiting, diarrhea. Objective - Vital Signs Vital signs: Vital Signs Temp Pulse Resp BP Pulse Ox 01/01/19 15:18 98 F 63 16 137/72 01/01/19 07:46 98 F 73 16 136/69 93 01/01/19 05:00 98 F 68 16 139/75 93 01/01/19 00:40 98.6 F 65 16 133/71 92 12/31/18 21:51 98.6 F 60 16 132/73 91 Intake and Output 12/31/18 01/01/19 01/01/19 23:59 07:59 15:59 Intake Total 120 / 600 60 / 660 600 / 660 Output Total 200 / 325 Balance -80 / 275 60 / 660 600 / 660 Intake: Oral 120 / 600 60 / 660 600 / 660 Output: Urine 200 / 325 Other: Meal Dinner Lunch Percent of Meal Consumed 50% 80% # Voids 1 Weight 82.2 kg 81.7 kg Patient Weight 01/01/19 23:59 Weight 81.7 kg - General Appearance General appearance: Present: chronically ill EENT: Present: ATNC, hearing intact, vision intact Neck: Present: no JVD, supple Respiratory: Present: clear Cardiology: Present: edema (+1 pitting edema noted to bilat lower extremities.), normal S1, normal S2 Gastrointestinal: Present: normoactive bowel sounds, no tenderness, no guarding Integumentary: Present: no rash, warm and dry Neurologic: Present: alert and oriented x3 Musculoskeletal: Present: no deformities, no erythema Psychiatric: Present: mood/affect appropriate, cooperative - Lab 01/01/19 00:43 01/01/19 00:43 Consult Discharge Plan - Plan [facility]errals: [facility] [Primary Care Provider] -
--- NOTE | 2019-01-01 16:41 | Discharge Summary ---
<OsmanFernando Snell - Last Filed: 01/01/19 16:36> - NOTES TO OUTPATIENT PROVIDER Notes to Outpatient Provider: Mr Ivory was admitted for CHF exacerbation. He had a paracentesis performed on 12/31 with removal of 4843mL of transudative ascitic fluid. Pt advised to follow 1.5L fluid restricted diet and to avoid s alt. Diuresis regimen changed to Lasix 40mg BID and Aldactone increased to 25mg daily. Recommend follow up for eitiology of ascites. Orders not resulted at time of discharge: Pending orders 12/31/18 14:39 Albumin,Body Fluid Routine Date of Encounter: 01/01/19 Time of Encounter: 08:45 - Discharge Diagnosis (1) Congestive heart failure Priority: Primary Status: Acute Qualifiers: Heart failure type: systolic Heart failure chronicity: acute on chronic Qualified Code(s): I50.23 - Acute on chronic systolic (congestive) heart failure (2) COPD (chronic obstructive pulmonary disease) Priority: Secondary Status: Acute Qualifiers: COPD type: unspecified COPD Qualified Code(s): J44.9 - Chronic obstructive pulmonary disease, unspecified (3) Ischemic cardiomyopathy Priority: Secondary Status: Acute (4) HTN (hypertension) Priority: Secondary Status: Acute Qualifiers: Hypertension type: essential hypertension Qualified Code(s): I10 - Essential (primary) hypertension (5) Pancytopenia Priority: Secondary Status: Acute (6) Ascites Priority: Secondary Status: Acute Qualifiers: Ascites type: other type Qualified Code(s): R18.8 - Other ascites Hospital course: Mr. Ivory is a 78 year old male Discharge discussed with: patient, nurse, area development consultant - Time Spent with Patient Total time spent providing and/or coordinating discharge services: - Discharge Medications Prescriptions: New Furosemide [Lasix] 40 mg PO BID 30 Days #60 tablet Continued Losartan [Cozaar] 12.5 mg PO QPM Carvedilol [Coreg] 6.25 mg PO BIDWM Budesonide/Formoterol 160/4.5 [Symbicort 160/4.5] 2 puff IH BIDR Allopurinol [Zyloprim 100 MG] 50 mg PO DAILY Ipratropium/Albuterol Sulfate [Combivent Respimat 20-100 Mcg] 1 puff IH QID PRN PRN Reason: COPD Changed Spironolactone [Aldactone] 25 mg PO BID 30 Days #30 tab Aspirin 81 mg PO DAILY #0 Atorvastatin Calcium [Lipitor] 80 mg PO HS #0 Discontinued Bumetanide [Bumex] 1 mg PO BID Home Medications: Allopurinol [Zyloprim 100 MG] 50 mg PO DAILY 12/31/18 [History] Budesonide/Formoterol 160/4.5 [Symbicort 160/4.5] 2 puff IH BIDR 12/31/18 [History] Carvedilol [Coreg] 6.25 mg PO BIDWM 12/31/18 [History] Ipratropium/Albuterol Sulfate [Combivent Respimat 20-100 Mcg] 1 puff IH QID PRN 12/31/18 [History] Losartan [Cozaar] 12.5 mg PO QPM 12/31/18 [History] Aspirin 81 mg PO DAILY #0 01/01/19 [Rx] Atorvastatin Calcium [Lipitor] 80 mg PO HS #0 01/01/19 [Rx] Furosemide [Lasix] 40 mg PO BID 30 Days #60 tablet 01/01/19 [Rx] Spironolactone [Aldactone] 25 mg PO BID 30 Days #30 tab 01/01/19 [Rx] Allergies/Adverse Reactions: Allergy/AdvReac Type Severity Reaction Status Date / Time Penicillins Allergy Hives Verified 12/31/18 08:50 Date of admission: 12/31/18 11:37 [facility] care physician: [facility] Consults: 12/31/18 09:26 Consult to Nephrology [CONS] Stat Consulting Provider: [facility]/HARESH/GERONIMO/PRETTY Reason for Consult: known pt. increased SOB, edema Call Completed: Yes 12/31/18 13:01 Consult to Palliative Care [CONS] Routine Comment: Consulting Provider: [facility] Reason for Consult: goals of care, hospice evaluation Call Completed: Yes - Constitutional Vitals: Temp Pulse Resp BP Pulse Ox 98 F 63 16 137/72 93 01/01/19 15:18 01/01/19 15:18 01/01/19 15:18 01/01/19 15:18 01/01/19 07:46 General appearance: Present: cooperative, A&O X 3, no acute distress, answers questions appropriately Exam: Constitutional: Well-developed male in no acute distress Head: Normocephalic, atraumatic Eyes: PERRL, EOMI, conjunctiva pink, sclera anicteric Neck: Supple, trachea midline Lungs: Good respiratory effort. Mild dry crackles in bilateral bases. Nonlabored breathing. No wheezes or rhonchi noted. Cardiac: RRR. +S1 +s2 No murmurs, clicks, or rubs noted. GI: Abdomen soft, nontender, nondistended. Normoactive bowel sounds Extremities: Warm, radial pulses palpable and symmetrical. No cyanosis, pedal edema, or calf tenderness. Neuro: Alert and oriented 3. No focal deficits. Normal speech. Skin: Warm, dry, and intact. - Patient Status Disposition: Home, Self-Care Condition: Good Functional capacity at discharge: independent ambulation Overall status at discharge: patient is back to baseline - Discharge Instructions Follow Up With: [facility] [Primary Care Provider] - (tried twice to reach the office to schedule appointment but phone continually rang with no answer) - Diet and Activity Activity: increase activity as tolerated, resume usual activities as tolerated Diet: low salt diet, other (1.5L fluid restriction ) <Angelika Lantigua - Last Filed: 01/01/19 17:03> Orders not resulted at time of discharge: Pending orders 12/31/18 14:39 Albumin,Body Fluid Routine Date of Encounter: 01/01/19 Time of Encounter: 17:00 - Discharge Diagnosis (1) Congestive heart failure Status: Acute Qualifiers: Heart failure type: systolic Heart failure chronicity: acute on chronic Qualified Code(s): I50.23 - Acute on chronic systolic (congestive) heart failure (2) COPD (chronic obstructive pulmonary disease) Status: Acute Qualifiers: COPD type: unspecified COPD Qualified Code(s): J44.9 - Chronic obstructive pulmonary disease, unspecified (3) Ischemic cardiomyopathy Status: Acute (4) HTN (hypertension) Status: Acute Qualifiers: Hypertension type: essential hypertension Qualified Code(s): I10 - Essential (primary) hypertension (5) Pancytopenia Status: Acute (6) Ascites Status: Acute Qualifiers: Ascites type: other type Qualified Code(s): R18.8 - Other ascites Hospital course: Mr. Ivory is a 78 year old male - Time Spent with Patient Total time spent providing and/or coordinating discharge services: Date of admission: 12/31/18 11:37 Primary care physician: [facility] Consults: 12/31/18 09:26 Consult to Nephrology [CONS] Stat Consulting Provider: [facility]/HARESH/GERONIMO/PRETTY Reason for Consult: known pt. increased SOB, edema Call Completed: Yes 12/31/18 13:01 Consult to Palliative Care [CONS] Routine Comment: Consulting Provider: [facility] Reason for Consult: goals of care, hospice evaluation Call Completed: Yes - Constitutional Vitals: Temp Pulse Resp BP Pulse Ox 98 F 63 16 137/72 93 01/01/19 15:18 01/01/19 15:18 01/01/19 15:18 01/01/19 15:18 01/01/19 07:46 - Attending Attestation I saw evaluated and examined this patient and reviewed objective data including labs and my medical decision-making was reviewed with the Resident Physician. I agree with the documented findings, disposition and discharge plan as described except to any changes set forth below. We independently had [id number] contact with the patient. Patient with history of ischemic cardiomyopathy with AICD in place, COPD, chronic kidney disease stage III and lung cancer was hospitalized here with shortness of breath believed to be due to CHF exacerbation and possibly tense ascites. Patient underwent paracentesis with removal of almost 5 L of serous fluid which appears to be transudative in nature most likely due to underlying CHF and hepatic congestion. Patient has also received Lasix and Aldactone and has had good urine output and relief of his symptoms of shortness of breath. He is now clinically stable to be discharged home. He is to remain on fluid restriction. We will also arrange for outpatient follow-up with GI for further evaluation of his ascites and potential outpatient paracentesis. Continue Lasix and Aldactone. Time spent on discharge: 7 min
[2019-01-02 15:21] LABS: Fluid Source for Albumin ASCITES FLUID
== END 2019-01-01 18:48 | disposition home or self-care (01) ==
LOC: EMEROOARM 08:40 → 2NENU 08:40
PROVIDERS: ADMIT Internal Medicine; ATTEND Internal Medicine

== ENCOUNTER 2019-03-03 13:24 | Observation (INO) ==
[2019-03-03] MEDS ORDERED: Furosemide 40 MG/4 ML VIAL IVP ONE (13:47)
[2019-03-03 14:31] LABS: Basophils % 0.4 %; Eosinophils # 0.1 K/mcL (0.0-0.6); Eosinophils % 1.8 %; Hematocrit 37.3 % (37.5-50.1); Hemoglobin 11.7 g/dL (12.9-16.9); INR 1.5; Immature Granulocytes % 0.2 % (0-4); Lymphocytes # 0.5 K/mcL (0.6-4.6); Lymphocytes % 9.9 %; Mean Corpuscular HGB Conc 31.4 g/dL (31.6-35.5); Mean Corpuscular Hemoglobin 29.8 pg (28.0-33.3); Mean Corpuscular Volume 94.9 fL (83.0-100.0); Mean Platelet Volume 10.2 fL (9.4-12.4); Monocytes # 0.5 K/mcL (0.0-1.3); Monocytes % 10.3 %; Neutrophils # 3.5 K/mcL (1.6-8.9); Platelet Count 124 K/mcL (140-400); Red Blood Count 3.93 M/mcL (4.19-5.50); Red Cell Distribution Width 20.8 % (11.5-14.5); Segmented Neutrophils % 77.4 %; White Blood Count 4.6 K/mcL (4.3-11.1)
[2019-03-03 14:34] LABS: Activated Partial Thrombo Time 35.3 Seconds (26.0-36.0)
[2019-03-03 15:00] LABS: Albumin 3.5 g/dL (3.5-5.7); Albumin/Globulin Ratio 1.1 (1.1-2.2); Bilirubin,Direct 1.2 mg/dL (0.0-0.2); Bilirubin,Indirect 1.4 mg/dL (0.0-1.0); Bilirubin,Total 2.6 mg/dL (0.3-1.0); Calcium 9.5 mg/dL (8.6-10.3); Globulin 3.2 g/dL (2.4-3.5); Potassium 4.9 mEq/L (3.5-5.1); Total Protein 6.7 g/dL (6.4-8.9); Troponin I 0.04 ng/mL (< 0.04)
[2019-03-03] MEDS ORDERED: Aspirin 81 MG TAB.CHEW PO ONE (15:07)
[2019-03-03] MEDS ORDERED: Ondansetron ODT 4 MG TAB.RAPDIS SL PRN (15:55)
[2019-03-03] MEDS ORDERED: Ondansetron 4 MG/2 ML VIAL IVP PRN (15:55)
[2019-03-03] MEDS ORDERED: Naloxone 0.4 MG/ML INJ IVP PRN (15:55)
[2019-03-03] MEDS ORDERED: NON-FORMULARY MEDICATION 1 EACH EACH (Ipratropium/Albuterol Sulfate [Combivent Respimat 20 IH PRN (23:19)
[2019-03-03] MEDS ORDERED: Furosemide 40 MG TABLET PO ONE (23:23)
[2019-03-04 06:59] LABS: Basophils % 0.6 %; Eosinophils # 0.1 K/mcL (0.0-0.6); Eosinophils % 2.3 %; Hematocrit 34.8 % (37.5-50.1); Immature Granulocytes % 0.2 % (0-4); Lymphocytes # 0.4 K/mcL (0.6-4.6); Lymphocytes % 9.2 %; Mean Corpuscular HGB Conc 31.6 g/dL (31.6-35.5); Mean Corpuscular Hemoglobin 29.9 pg (28.0-33.3); Mean Corpuscular Volume 94.6 fL (83.0-100.0); Mean Platelet Volume 10.4 fL (9.4-12.4); Monocytes # 0.6 K/mcL (0.0-1.3); Monocytes % 13.6 %; Neutrophils # 3.5 K/mcL (1.6-8.9); Platelet Count 130 K/mcL (140-400); Red Blood Count 3.68 M/mcL (4.19-5.50); Red Cell Distribution Width 20.9 % (11.5-14.5); Segmented Neutrophils % 74.1 %; White Blood Count 4.7 K/mcL (4.3-11.1)
[2019-03-04 07:01] LABS: INR 1.5; Prothrombin Time 16.9 Seconds (9.4-12.1)
[2019-03-04 07:24] LABS: Calcium 9.2 mg/dL (8.6-10.3); Potassium 4.7 mEq/L (3.5-5.1)
[2019-03-04] MEDS: Budesonide/Formoterol 160/4.5 1 PUFF INH IH SCH ×2 (07:32→19:57)
[2019-03-04] MEDS ORDERED: Furosemide 40 MG/4 ML VIAL IVP SCH (08:00)
[2019-03-04] MEDS: carvediloL 6.25 MG TABLET PO SCH ×2 (09:10→17:38)
[2019-03-04] MEDS: levoFLOXacin 500 MG/100 ML 500 MG/100 ML BAG IVPB SCH (09:11)
[2019-03-04 14:39] LABS: Hepatitis B Surface Antigen Nonreactive (Nonreactive)
[2019-03-04 15:09] LABS: Hepatitis B Core IgM Nonreactive (Nonreactive)
[2019-03-04 15:10] LABS: Hepatitis C Virus Antibody Nonreactive (Nonreactive)
[2019-03-04 15:27] LABS: Hepatitis A Antibody IgM Nonreactive (Nonreactive)
[2019-03-04 16:46] LABS: RBC,Peritoneal Fluid 0.002 M/mcL
[2019-03-04 19:30] LABS: Basophils,Peritoneal Fluid 0 %; Eosinophils,Peritoneal Fluid 0 %
[2019-03-04 19:31] LABS: Appearance of Peritoneal Fl CLEAR (Clear)
[2019-03-04] MEDS: Lactulose Oral Soln 20 GM/30 ML UDC PO SCH (20:35)
[2019-03-05 06:28] LABS: Calcium 8.6 mg/dL (8.6-10.3); Magnesium 2.3 mg/dL (1.6-2.6); Potassium 4.5 mEq/L (3.5-5.1)
[2019-03-05] MEDS: Budesonide/Formoterol 160/4.5 1 PUFF INH IH SCH (07:38)
[2019-03-05] MEDS: Lactulose Oral Soln 20 GM/30 ML UDC PO SCH (08:42)
[2019-03-05] MEDS: carvediloL 6.25 MG TABLET PO SCH (08:42)
[2019-03-05] MEDS: levoFLOXacin 500 MG/100 ML 500 MG/100 ML BAG IVPB SCH (08:59)
[2019-03-05] MEDS ORDERED: Furosemide 40 MG/4 ML VIAL IVP SCH (09:00)
[2019-03-05 11:50] VITALS: BP 136/67
[2019-03-06 13:18] LABS: AFP Tumor Marker Non-Pregnant 1 ng/mL (0-9); F-Actin (sm muscle) Ab IgG 21 Units (0-19)
[2019-03-07 12:15] LABS: ANA IgG by ELISA NONE DETECTED (None Detected); Smooth Muscle Ab Titer IgG 1:40 (<1:20)
[2019-03-10 15:31] LABS: Fluid Source for Albumin PERITONEAL FL
== END 2019-03-05 13:08 | disposition left against medical advice (07) ==
LOC: 3BNU 13:24 → EMEROOARM 13:24 → SUATTDRO 15:37 → 3BNU 17:23
PROVIDERS: ADMIT Internal Medicine; ATTEND Internal Medicine